=== PATIENT | male | born 1940 | race Caucasian/White ===

== ENCOUNTER 2018-06-09 14:51 | Inpatient (IN) | payer MEDICARE, OTHER ==
[~2018-06-09] VITALS: Ht 185.4 cm; Wt 131.0 kg
[2018-06-09] MEDS ORDERED: PANTOPRAZOLE 40 MG INJ IV STA (15:09)
[2018-06-09] MEDS ORDERED: RSV10T PO (15:55)
[2018-06-09] MEDS ORDERED: FURO40TA4 PO (15:57)
[2018-06-09] MEDS ORDERED: DILT180C94 PO (15:57)
[2018-06-09] MEDS ORDERED: METO-335 PO (15:58)
[2018-06-09] MEDS ORDERED: CAR8 PO (15:59)
[2018-06-09] MEDS ORDERED: ACETAMINOPHEN 325 MG TAB PO PRN ×2 (16:00→19:00)
[2018-06-09] MEDS ORDERED: ONDANSETRON 4 MG INJ IV PRN ×2 (16:00→19:00)
[2018-06-09] MEDS ORDERED: HYDR-3672 PO (16:01)
[2018-06-09] MEDS ORDERED: HYDR100T25 PO (16:01)
[2018-06-09] MEDS ORDERED: BENA40TA56 PO (16:03)
[2018-06-09] MEDS ORDERED: POTA20TA96 PO (16:03)
[2018-06-09] MEDS ORDERED: WARF5TAB PO (16:09)
[2018-06-09] MEDS ORDERED: WARF6TAB48 PO (16:09)
--- NOTE | 2018-06-09 18:03 | ERD ---
ER Documentation Chief Complaint Chief Complaint RECTAL BLEEDING TODAY SENT BY PMD , NO DIZZINESS. NO SOB OR CP. HPI Patient is a 78-year-old male with hypertension, diabetes, and A. fib who presents with "colonic bleed". The patient has had rectal bleeding 3 times in the past 5 years. He was initially on Pradaxa but is currently on Coumadin. He said the lump blood from the right colon last time. He did take vitamin K 10 mg by mouth today when he started bleeding. He said that it was "lots of blood it was dark red". He said that his last INR was 2.2. He was sent by Dr. Carey his primary doctor. He says that his last colonoscopy was a few years ago by Dr. Gerard and he was found to have diverticulosis. Upon review of old medical records this is the patient's first visit to the emergency department. ROS All systems reviewed and are negative except as per history of present illness. Medications Home Meds Reported Medications Warfarin Sodium* (Coumadin*) 5 Mg Tablet, 5 MG PO Q TUE,TH,SAT,SAT, TAB NEEDED 06/09/18 Warfarin Sodium* (Warfarin Sodium*) 6 Mg Tablet, 6 MG PO Q MON,WED,FRI, TAB NEEDED 06/09/18 Benazepril Hcl* (Benazepril Hcl*) 40 Mg Tablet, 40 MG PO DAILY, #30 TAB 06/09/18 Potassium Chloride* (Potassium Chloride*) 20 Meq Tablet.er, 20 MEQ PO BID, TAB.SA 06/09/18 Hydralazine Hcl* (Hydralazine Hcl*) 50 Mg Tab, 50 MG PO TID, #120 TAB 06/09/18 Doxazosin Mesylate* (Cardura*) 8 Mg Tablet, 8 MG PO QHS for 30 Days, TAB 06/09/18 Metoprolol Succinate* (Toprol XL*) 25 Mg Tab.sr.24h, 25 MG PO DAILY, #30 TAB 06/09/18 Diltiazem Hcl* (Diltiazem XT) 180 Mg Capsule.er, 180 MG PO DAILY, #30 CAP 06/09/18 Furosemide* (Furosemide*) 40 Mg Tablet, 40 MG PO BID, TAB 06/09/18 Rosuvastatin Calcium* (Crestor*) 10 Mg Tablet, 10 MG PO QHS, #30 TAB 06/09/18 Discontinued Reported Medications Hydralazine Hcl* (Hydralazine Hcl*) 100 Mg Tablet, 100 MG PO NEEDED, #90 TAB 06/09/18 Allergies Allergies: Coded Allergies: No Known Allergy (Unverified , 06/09/18) PMhx/Soc Positive for diabetes and hypertension with atrial fibrillation FmHx Family History: diabetes Physical Exam Vitals Vital Signs Date Temp Pulse Resp B/P (MAP) Pulse Ox O2 O2 Flow FiO2 Time Delivery Rate 06/09/18 98.0 79 20 189/101 98 14:58 (130) Physical Exam Const: No acute distress Head: Atraumatic Eyes: Normal Conjunctiva ENT: Normal External Ears, Nose and Mouth. Neck: Full range of motion. No meningismus. Resp: Clear to auscultation bilaterally Cardio: Regular rate with irregular rhythm Abd: Soft, non tender, non distended. Normal bowel sounds Skin: No petechiae or rashes Back: No midline or flank tenderness Ext: No cyanosis, or edema Neur: Awake and alert Psych: Normal Mood and Affect Result Diagram: 06/09/18 1548 06/09/18 1548 Results 24 hrs Laboratory Tests Test 06/09/18 15:48 White Blood Count 5.3 10^3/ul Red Blood Count 4.51 10^6/ul Hemoglobin 12.5 g/dl Hematocrit 40.4 % Mean Corpuscular Volume 89.6 fl Mean Corpuscular Hemoglobin 27.7 pg Mean Corpuscular Hemoglobin Concent 30.9 g/dl Red Cell Distribution Width 16.1 % Platelet Count 132 10^3/UL Mean Platelet Volume 10.9 fl Immature Granulocytes % 0.200 % Neutrophils % 72.3 % Lymphocytes % 17.3 % Monocytes % 9.0 % Eosinophils % 0.8 % Basophils % 0.4 % Nucleated Red Blood Cells % 0.0 /100WBC Immature Granulocytes # 0.010 10^3/ul Neutrophils # 3.8 10^3/ul Lymphocytes # 0.9 10^3/ul Monocytes # 0.5 10^3/ul Eosinophils # 0.0 10^3/ul Basophils # 0.0 10^3/ul Nucleated Red Blood Cells # 0.0 10^3/ul Prothrombin Time 26.2 Sec Prothrombin Time Ratio 2.0 INR International Normalized Ratio 2.40 Activated Partial Thromboplast Time 40.0 Sec Sodium Level 139 mmol/L Potassium Level 4.1 mmol/L Chloride Level 100 mmol/L Carbon Dioxide Level 30 mmol/L Anion Gap 9 Blood Urea Nitrogen 25 mg/dl Creatinine 1.12 mg/dl Est Glomerular Filtrat Rate mL/min mL/min Glucose Level 117 mg/dl Calcium Level 9.4 mg/dl Total Bilirubin 0.3 mg/dl Direct Bilirubin 0.00 mg/dl Indirect Bilirubin 0.3 mg/dl Aspartate Amino Transf (AST/SGOT) 24 IU/L Alanine Aminotransferase (ALT/SGPT) 18 IU/L Alkaline Phosphatase 84 IU/L Troponin I < 0.012 ng/ml Total Protein 7.2 g/dl Albumin 3.8 g/dl Globulin 3.40 g/dl Albumin/Globulin Ratio 1.11 Current Medications Medications Dose Sig/Preston Start Time Status Last (Trade) Ordered Route PRN Stop Time Admin Dose Reason Admin 40 mg ONCE STAT 06/09/18 DC 06/09/18 Pantoprazole IV 15:09 16:33 (Protonix 06/09/18 15:10 Iv) Ondansetron 4 mg BRIDGE ORDER 06/09/18 HCl (Zofran PRN IV 16:00 Inj) NAUSEA/VOMITI 06/10/18 15:59 NG 650 mg ER BRIDGE 06/09/18 Acetaminophen PRN PO 16:00 (Tylenol .MILD PAIN 06/10/18 15:59 Tab) 1-3 OR TEMP Procedures/MDM EKG read by me: Rate/Rhythm: Atrial fibrillation with a controlled rate Intervals: Normal Impression: Atrial fibrillation without ischemia Patient is a 78-year-old male who presents with acute GI bleed. The patient is a high risk of continued bleeding given the fact that he is on Coumadin and I am very concerned about serious life-threatening GI bleed. I believe that inpatient admission is appropriate. I spoke with Dr. Carey he will admit the patient. Dr. Gerard from GI has come and seen the patient at the bedside as well and requested a nuclear medicine bleeding scan. The patient Jairo took 10 mg of vitamin K by mouth today. Critical Care: Time: 35 minutes excluding all billable procedures. Treatments/Evaluations: Close monitoring and treatment of unstable vital signs, cardiorespiratory, and neurologic status, while maintaining tight balance of fluid, respiratory, and cardiac interventions. Departure Diagnosis: Primary Impression: Rectal hemorrhage Additional Impression: Coagulopathy Condition: Fair ADITI NAVARROIAN MD Jun 09, 2018 18:03
[2018-06-09] MEDS ORDERED: ZOLPIDEM 5 MG TAB PO PRN (19:00)
[2018-06-09] MEDS ORDERED: NACL 0.9% 3 ML SYG IV SCH (19:00)
[2018-06-09] MEDS ORDERED: SOD CHLORIDE 0.9% 0 ML IV ONE (19:21)
[2018-06-09 20:06] VITALS: Ht 185.4 cm; Wt 131.0 kg
--- NOTE | 2018-06-09 20:19 | CONS ---
DATE OF ADMISSION: 06/09/2018 DATE OF CONSULTATION: 06/09/2018 TYPE OF CONSULTATION: Gastroenterology. Thank you for having me see this patient. HISTORY OF PRESENT ILLNESS: As you know, he is a 78-year-old gentleman who comes to the emergency ro om today because of rectal bleeding. This is the 4th episode of rectal bleeding for this patient. Erasmo franco has previously been admitted at [facility] in [place] for this problem. Nonetheless becau se of underlying atrial fibrillation, he has been on Coumadin. He had been doing well since his last bleeding episode in 03/2016. Nonetheless today, he passed a normal bowel movement in the morning. At 1:00 p.m., he began passing bright red blood per rectum without any pain. He had been on Coumadin which he stopped and under the direction of Dr. Gong, he took 2 vitamin D tablets. Since bein g in the emergency room, he has passed an additional bloody stool. I was contacted by the emergency room physician to see him and ordered a stat nuclear medicine bleeding study. Of note, his last colo noscopy in 2016 was remarkable for pancolonic diverticulosis. At his last bleeding episode in [facility], the nuclear scan suggested a right colonic bleed. PAST MEDICAL HISTORY, HOSPITALIZATIONS AND OPERATIONS: Related to abdominal aortic aneurysm, percuta neous repair. ADULT ILLNESSES: Significant for atrial fibrillation, diabetes, diverticulosis, hyperlipidemia, skin cancer, sleep apnea. CHILDHOOD: Denies rheumatic fever or Scarlet fever. ALLERGIES: NONE KNOWN. INJURIES: NONE. MEDICATIONS: Include: 1. Benazepril. 2. Cardura. 3. Crestor. 4. Diltiazem. 5. Furosemide. 6. Potassium. 7. Toprol. 8. Hydralazine. 9. Warfarin. SOCIAL HISTORY: The patient is a retired electrical supervisor. He does not smoke currently, but did in the past. Alcohol intake is described as socially 3 times a week. The patient is . FAMILY HISTORY: Noncontributory except for mother who of stroke. REVIEW OF SYSTEMS: Negative except as noted above. PHYSICAL EXAMINATION: GENERAL: The patient is a well-developed elderly white male in no acute distress. VITAL SIGNS: Temperature 98, pulse 79, respirations 20, blood pressure 189/101. SKIN: Clear. HEENT: Negative. LUNGS: Clear to percussion and auscultation. CARDIAC: No murmurs or gallops. ABDOMEN: Soft, nontender. Liver is 8 cm. Spleen is not palpable. No masses. RECTAL: Deferred, although stool in the toilet bowl is red. LABORATORY DATA: At 15:48, show a white count 5.3, hemoglobin 12, hematocrit 40, platelets 132. Coa gulation: PT/INR 2.4, PTT 40. Chemistries are remarkable for BUN of 25. IMPRESSION: Clearly, the patient has lower gastrointestinal bleeding episode. It is most likely altagracia t this is once again a diverticular bleeding episode. In order to locate the exact diverticulum from which he was bleeding from, the patient will be obtaining a stat nuclear medicine bleeding study. H opefully, this will localize the area of the colon where the bleeding diverticula lies. Nonetheless, I agree with reversal of anticoagulation. In addition, the idea of a Watchman procedure so that the patient does not need anticoagulation in the future is warranted. Pending his clinical course, we m ay need to consider colonoscopy to attempt endoscopic hemostasis. Alternatively pending his clinical course, we may need to consider surgical consultation. PLAN: 1. Await nuclear medicine bleeding study. 2. Hematocrit to be checked every 6 hours. 3. Clear liquid diet. 4. Further recommendations to follow above and clinical course. Thank you once again for having me see this patient. Dictated By: IMMANUEL HEREDIA/FRANKIE Conf#: [id number] DID#: [id number] CC: DONNY GONG MD;*End*
--- NOTE | 2018-06-09 20:29 | PREOPHP ---
DATE OF ADMISSION: 06/09/2018 REASON FOR ADMISSION: Gastrointestinal bleeding. HISTORY OF PRESENT ILLNESS: This 78-year-old man was in his usual state until after lunch today when he had a bloody bowel movement. He had a normal bowel movement earlier this morning. The patient d oes have a history of GI bleeding in the past. He has had at least 3 episodes and have all thought t o be diverticular in origin. He is on Coumadin for chronic atrial fibrillation and stroke prevention . His last INR was around 2.5. He had one done today in the emergency room and it was 2.4. The pat ient at this time is awake and alert. He just finished a GI bleeding study. He denies any chest jerardo n, shortness of breath, abdominal pain, nausea, vomiting. CURRENT MEDICATIONS: Include the followin. Coumadin 5 mg alternating with 6 mg daily. 2. Benazepril 40 mg a day. 3. Diltiazem 180 mg a day. 4. Doxazosin 8 mg at bedtime. 5. Hydralazine 50 mg 3 times a day. 6. Metoprolol XL 25 mg a day. 7. Simvastatin 10 mg a day. 8. Furosemide 40 mg twice a day. 9. Potassium chloride 20 mEq twice a day. PAST MEDICAL HISTORY: Remarkable for hypertension, hyperlipidemia, allergic rhinitis, diverticulosis , hemorrhoids, anal fissures, type 2 diabetes mellitus, sleep apnea, GI bleeding several episodes pre sumed diverticular, chronic atrial fibrillation, abdominal aortic aneurysm. PAST SURGICAL HISTORY: Basal cell cancer removed from right lower leg in 2007, abdominal aortic aneu rysm stent placed 2 years ago at [facility], multiple colonoscopies. FAMILY HISTORY: Father is at age 84 of pneumonia. Mother is at age 79 of CVA. SOCIAL HISTORY: The patient does not smoke. He does exercise. Drinks alcohol socially. Occupation : Retired waste management engineer. PHYSICAL EXAMINATION: GENERAL: At this time reveals a well-developed man in no apparent distress. VITAL SIGNS: Pulse is 78, respirations 16, blood pressure 164/89, O2 saturation 100% on room air. HEENT: Head is normocephalic. Eyes: Extraocular muscles are intact. Nose and mouth are normal. NECK: Supple. No neck vein distention. LUNGS: Clear to auscultation. HEART: Irregularly irregular rhythm. No murmurs, gallops or rubs. ABDOMEN: Soft, nontender, no masses or megaly. EXTREMITIES: Trace pretibial edema. Pedal pulses are palpable bilaterally. NEUROLOGIC: Grossly intact. No obvious focal neurologic deficits. IMPRESSION: 1. Gastrointestinal bleeding. This man has had at least 3 episodes of gastrointestinal bleeding, th e last one 3 years ago when he was admitted to [facility]. At that time, he had positive for g astrointestinal bleeding study which showed bleeding in the right upper quadrant thought to be in the ascending colon. He just had a nuclear medicine bleeding study done now, which shows bleeding in th e right upper quadrant just below the liver consistent with ascending colon. He is on anticoagulant, Coumadin, which has been discontinued. He did take vitamin K 10 mg as soon as he had a bloody bowel movement today. I will order 2 units of fresh frozen plasma to be given now. He was seen in [facility], [place] by Dr. Tristan Lobato, his internal review and audit compliance. 2. Chronic atrial fibrillation on Coumadin for stroke prevention. 3. Abdominal aortic aneurysm status post stent placement. 4. Hypertension. 5. Hyperlipidemia. PLAN: 1. Admit to med/surg. Monitor for further bleeding and check hemoglobin and hematocrit later tonigh t and in the morning. 2. Reverse the anticoagulant with oral vitamin K, which he already took and 2 units of fresh frozen plasma. 3. Resume some routine medications. 4. Decide about further anticoagulation or other measures such as a Watchman device to reduce the ri sk of bleeding. Dictated By: DONNY GONG MD ND/FRANKIE Conf#: [id number] DID#: [id number] CC: TRISTAN LOBATO MD;*EndCC*
[2018-06-09] MEDS ORDERED: GLUCOSE GEL 15 GRAM TUBE PO PRN ×2 (20:30)
[2018-06-09] MEDS ORDERED: DEXTROSE 50% 50 ML SYRINGE IV PRN ×2 (20:30)
[2018-06-09] MEDS ORDERED: GLUCAGON 1 MG INJ IM PRN (20:30)
[2018-06-09] MEDS ORDERED: GLUCOSE GEL 15 GRAM TUBE BUCCAL PRN (20:30)
[2018-06-09 20:57] VITALS: BP 180/90; PULSE 91; RESP 16
[2018-06-09] MEDS: INSULIN ASPART [NOVOLOG] 3 ML PEN SC SCH (21:00)
[2018-06-09] MEDS: DEXTROSE 5%-0.45% NACL 1,000 ML IV SCH (22:02)
[2018-06-09] MEDS: ATORVASTATIN 40 MG TAB PO SCH (22:04)
[2018-06-09] MEDS: DOXAZOSIN 4 MG TAB PO SCH (22:05)
[2018-06-10 03:33] VITALS: BP 137/81; PULSE 79; RESP 16
[2018-06-10] MEDS: DEXTROSE 5%-0.45% NACL 1,000 ML IV SCH (06:00)
[2018-06-10 08:00] VITALS: BP_SYST 110; BP_SYST 170; BP_DIAS 62; BP_DIAS 84; PULSE 76; RESP 18; RESP 20
[2018-06-10] MEDS: INSULIN ASPART [NOVOLOG] 3 ML PEN SC SCH ×4 (08:00→20:37)
--- NOTE | 2018-06-10 08:23 | PN ---
Date/Time of Note Date/Time of Note DATE: 06/10/18 TIME: 08:16 Assessment/Plan VTE Prophylaxis SCD applied (from Nsg): Yes Pharmacological prophylaxis: NA/contraindicated Pharm contraindication: bleeding Lines/Catheters IV Catheter Type (from Nrsg): Saline Lock Assessment/Plan Hospital Course 1. Gastrointestinal bleeding. Nuclear medicine bleeding study was positive for right upper quadrant consistent with a sending colon. This is where he bled previously. He had one small BM that was bloody this morning. His INR is almost completely reversed. He is asymptomatic with this. Dr. Gerard , his auto parts professional will follow up with the patient today. Will advance diet as tolerated. 2. Chronic atrial fibrillation. His anticoagulation has been reversed with vitamin K and FFP. 3. Hypertension, controlled 4. Hyperlipidemia 5. Type 2 diabetes mellitus, controlled Result Diagram: 06/10/18 0702 06/10/18 0341 Results 24hrs Laboratory Tests Test 06/09/18 15:48 06/09/18 19:40 06/09/18 22:12 06/10/18 00:35 White Blood Count 5.3 Red Blood Count 4.51 L Hemoglobin 12.5 L 10.8 L Hematocrit 40.4 L 33.9 L Mean Corpuscular 89.6 Volume Mean Corpuscular 27.7 L Hemoglobin Mean Corpuscular 30.9 L Hemoglobin Concent Red Cell 16.1 H Distribution Width Platelet Count 132 L Mean Platelet Volume 10.9 H Immature 0.200 Granulocytes % Neutrophils % 72.3 Lymphocytes % 17.3 Monocytes % 9.0 Eosinophils % 0.8 Basophils % 0.4 Nucleated Red Blood 0.0 Cells % Immature 0.010 Granulocytes # Neutrophils # 3.8 Lymphocytes # 0.9 Monocytes # 0.5 Eosinophils # 0.0 Basophils # 0.0 Nucleated Red Blood 0.0 Cells # Prothrombin Time 26.2 H Prothrombin Time 2.0 Ratio INR International 2.40 Normalized Ratio Activated 40.0 H Partial Thromboplast Time Sodium Level 139 Potassium Level 4.1 Chloride Level 100 Carbon Dioxide Level 30 Anion Gap 9 Blood Urea Nitrogen 25 H Creatinine 1.12 Est Glomerular Filtrat Rate mL/min Glucose Level 117 Calcium Level 9.4 Total Bilirubin 0.3 Direct Bilirubin 0.00 Indirect Bilirubin 0.3 Aspartate Amino 24 Transf (AST/SGOT) Alanine 18 Aminotransferase (AL T/SGPT) Alkaline Phosphatase 84 Troponin I < 0.012 Total Protein 7.2 Albumin 3.8 Globulin 3.40 H Albumin/Globulin 1.11 Ratio Stool Occult Blood NEGATIVE Bedside Glucose 113 Test 06/10/18 03:41 06/10/18 07:02 White Blood Count 5.4 Red Blood Count 3.57 #L Hemoglobin 10.3 L 10.4 L Hematocrit 32.0 L 32.6 L Mean Corpuscular 89.6 Volume Mean Corpuscular 28.9 L Hemoglobin Mean Corpuscular 32.2 Hemoglobin Concent Red Cell 15.8 H Distribution Width Platelet Count 107 L Mean Platelet Volume 11.0 H Immature 0.200 Granulocytes % Neutrophils % 66.9 Lymphocytes % 21.6 Monocytes % 9.8 Eosinophils % 1.1 Basophils % 0.4 Nucleated Red Blood 0.0 Cells % Immature 0.010 Granulocytes # Neutrophils # 3.6 Lymphocytes # 1.2 Monocytes # 0.5 Eosinophils # 0.1 Basophils # 0.0 Nucleated Red Blood 0.0 Cells # Prothrombin Time 19.7 #H Prothrombin Time 1.5 Ratio INR International 1.66 Normalized Ratio Activated 31.0 Partial Thromboplast Time Sodium Level 143 Potassium Level 3.5 Chloride Level 110 # Carbon Dioxide Level 28 Anion Gap 5 Blood Urea Nitrogen 21 H Creatinine 0.95 Est Glomerular Filtrat Rate mL/min Glucose Level 93 Hemoglobin A1c 6.2 H Calcium Level 8.9 Total Bilirubin 0.7 Direct Bilirubin 0.00 Indirect Bilirubin 0.7 Aspartate Amino 20 Transf (AST/SGOT) Alanine 21 Aminotransferase (AL T/SGPT) Alkaline Phosphatase 66 Total Protein 6.1 # Albumin 3.2 L Globulin 2.90 Albumin/Globulin 1.10 Ratio Subjective 24 Hr Interval Summary Constitutional: no complaints, improved Respiratory: no complaints Cardiovascular: no complaints Gastrointestinal: blood, passing stool Genitourinary: no complaints Musculoskeletal: no complaints Neurologic: no complaints Exam/Review of Systems Exam Vitals Vital Signs Date Temp Pulse Resp B/P (MAP) Pulse Ox O2 O2 Flow FiO2 Time Delivery Rate 06/10/18 97.3 79 16 137/81 95 03:33 (99) 06/09/18 Room Air 17:59 Intake and Output 06/09/18 06/09/18 06/10/18 1515:00 23:00 07:00 OutputOutput Total 500 ml BalanceBalance -500 ml Constitutional: alert, oriented, well developed Respiratory: clear to auscultation, normal air movement Cardiovascular: edema, irregular rhythm Gastrointestinal: soft, non-tender Extremities: edema Results Results 24hrs Laboratory Tests Test 06/09/18 15:48 06/09/18 19:40 06/09/18 22:12 06/10/18 00:35 White Blood Count 5.3 Red Blood Count 4.51 L Hemoglobin 12.5 L 10.8 L Hematocrit 40.4 L 33.9 L Mean Corpuscular 89.6 Volume Mean Corpuscular 27.7 L Hemoglobin Mean Corpuscular 30.9 L Hemoglobin Concent Red Cell 16.1 H Distribution Width Platelet Count 132 L Mean Platelet Volume 10.9 H Immature 0.200 Granulocytes % Neutrophils % 72.3 Lymphocytes % 17.3 Monocytes % 9.0 Eosinophils % 0.8 Basophils % 0.4 Nucleated Red Blood 0.0 Cells % Immature 0.010 Granulocytes # Neutrophils # 3.8 Lymphocytes # 0.9 Monocytes # 0.5 Eosinophils # 0.0 Basophils # 0.0 Nucleated Red Blood 0.0 Cells # Prothrombin Time 26.2 H Prothrombin Time 2.0 Ratio INR International 2.40 Normalized Ratio Activated 40.0 H Partial Thromboplast Time Sodium Level 139 Potassium Level 4.1 Chloride Level 100 Carbon Dioxide Level 30 Anion Gap 9 Blood Urea Nitrogen 25 H Creatinine 1.12 Est Glomerular Filtrat Rate mL/min Glucose Level 117 Calcium Level 9.4 Total Bilirubin 0.3 Direct Bilirubin 0.00 Indirect Bilirubin 0.3 Aspartate Amino 24 Transf (AST/SGOT) Alanine 18 Aminotransferase (AL T/SGPT) Alkaline Phosphatase 84 Troponin I < 0.012 Total Protein 7.2 Albumin 3.8 Globulin 3.40 H Albumin/Globulin 1.11 Ratio Stool Occult Blood NEGATIVE Bedside Glucose 113 Test 06/10/18 03:41 06/10/18 07:02 White Blood Count 5.4 Red Blood Count 3.57 #L Hemoglobin 10.3 L 10.4 L Hematocrit 32.0 L 32.6 L Mean Corpuscular 89.6 Volume Mean Corpuscular 28.9 L Hemoglobin Mean Corpuscular 32.2 Hemoglobin Concent Red Cell 15.8 H Distribution Width Platelet Count 107 L Mean Platelet Volume 11.0 H Immature 0.200 Granulocytes % Neutrophils % 66.9 Lymphocytes % 21.6 Monocytes % 9.8 Eosinophils % 1.1 Basophils % 0.4 Nucleated Red Blood 0.0 Cells % Immature 0.010 Granulocytes # Neutrophils # 3.6 Lymphocytes # 1.2 Monocytes # 0.5 Eosinophils # 0.1 Basophils # 0.0 Nucleated Red Blood 0.0 Cells # Prothrombin Time 19.7 #H Prothrombin Time 1.5 Ratio INR International 1.66 Normalized Ratio Activated 31.0 Partial Thromboplast Time Sodium Level 143 Potassium Level 3.5 Chloride Level 110 # Carbon Dioxide Level 28 Anion Gap 5 Blood Urea Nitrogen 21 H Creatinine 0.95 Est Glomerular Filtrat Rate mL/min Glucose Level 93 Hemoglobin A1c 6.2 H Calcium Level 8.9 Total Bilirubin 0.7 Direct Bilirubin 0.00 Indirect Bilirubin 0.7 Aspartate Amino 20 Transf (AST/SGOT) Alanine 21 Aminotransferase (AL T/SGPT) Alkaline Phosphatase 66 Total Protein 6.1 # Albumin 3.2 L Globulin 2.90 Albumin/Globulin 1.10 Ratio Medications Medication Current Medications IV Flush (NS 3 ml) 3 ml PER PROTOCOL IV ; Start 06/09/18 at 19:00 Ondansetron HCl (Zofran Inj) 4 mg Q6H PRN IV NAUSEA/VOMITING; Start 06/09/18 at 19:00 Acetaminophen (Tylenol Tab) 650 mg Q6H PRN PO .PAIN 1-3 OR TEMP; Start 06/09/18 at 19:00 Zolpidem Tartrate (Ambien) 5 mg QHS PRN PO .INSOMNIA; Start 06/09/18 at 19:00 Benazepril HCl (Lotensin) 40 mg DAILY PO ; Start 06/10/18 at 09:00 Diltiazem HCl (Cardizem Cd) 180 mg DAILY PO ; Start 06/10/18 at 09:00 Doxazosin Mesylate (Cardura) 8 mg QHS PO Last administered on 06/09/18at 22:05; Admin Dose 8 MG; Start 06/09/18 at 21:00 Hydralazine HCl (Apresoline) 50 mg TID PO Last administered on 06/09/18at 22:05; Admin Dose 50 MG; Start 06/09/18 at 21:00 Metoprolol Succinate (Toprol Xl) 25 mg DAILY PO ; Start 06/10/18 at 09:00 Atorvastatin Calcium (Lipitor) 40 mg DAILY@21 PO Last administered on 06/09/18at 22:04; Admin Dose 40 MG; Start 06/09/18 at 21:00 Dextrose/Sodium Chloride 1,000 ml @ 100 mls/hr Q10H IV Last administered on 06/09/18at 22:02; Admin Dose 100 MLS/HR; Start 06/09/18 at 20:00 Insulin Aspart (Novolog Insulin Pen) NOVOLOG *MILD* ALGORITHM WITH MEALS BEDTIME SC ; Start 06/09/18 at 21:00 Miscellaneous Information 1 ea NOTE XX ; Start 06/09/18 at 20:30 Glucose (Glutose) 15 gm Q15M PRN PO DECREASED GLUCOSE; Start 06/09/18 at 20:30 Glucose (Glutose) 22.5 gm Q15M PRN PO DECREASED GLUCOSE; Start 06/09/18 at 20:30 Dextrose (D50w Syringe) 25 ml Q15M PRN IV DECREASED GLUCOSE; Start 06/09/18 at 20:30 Dextrose (D50w Syringe) 50 ml Q15M PRN IV DECREASED GLUCOSE; Start 06/09/18 at 20:30 Glucagon (Glucagen) 1 mg Q15M PRN IM DECREASED GLUCOSE; Start 06/09/18 at 20:30 Glucose (Glutose) 15 gm Q15M PRN BUCCAL DECREASED GLUCOSE; Start 06/09/18 at 20:30 DONNY GONG MD Jun 10, 2018 08:23
[2018-06-10] MEDS: DILTIAZEM (CD) 180 MG CAP PO SCH (09:41)
[2018-06-10] MEDS: BENAZEPRIL 40 MG TAB PO SCH (09:42)
[2018-06-10] MEDS: METOPROLOL (XL) 25 MG TAB PO SCH (09:43)
--- NOTE | 2018-06-10 11:04 | CONS ---
Assessment/Plan Assessment/Plan Hospital Course (Demo Recall) 78 yowm w/ afib, DM, hld, AAA (s/p EVAR), htn, and diverticulosis who presents with a GI bleed. HCT is stable now. Pt is hemodynamically stable. He is in afib, but HR is in the 60-70s. Defer w/u of GI bleed to medicine and GI. With regards to afib, pt warrants anticoagulation (CHADS-VASC score of 5), but he has had multiple GI bleeds on coumadin. Had a long discussion with patient regarding the Watchman procedure. He said he will reconsider it. This can be pursued as an outpt. Continue diltiazem and metoprolol. Continue statin, cailin-I and other bp meds. Consultation Date/Type/Reason Admit Date/Time Jun 09, 2018 at 15:43 Date of Consultation: Jun 10, 2018 Type of Consult Cardiology Reason for Consultation gi bleed, afib Date/Time of Note DATE: 06/10/18 TIME: 11:04 Hx of Present Illness 78 yowm w/ afib, DM, hld, AAA (s/p EVAR), htn, and diverticulosis who presents with a GI bleed. Pt noticed BRBPR after eating lunch yesterday. His INR was 2.4. His coumadin has been held. Pt reports having some BMs overnight w/ some hematochezia, but his last few hcts have been stable. He is in afib, but his HR has been under control (60-70s). Pt denies cp, sob or abdominal pain. GI ordered a nuclear scan to determine the source of the bleeding. Pt has a hx of afib and is followed by Dr. Beck. This is his third GI b leed. The first occurred while he was on pradaxa. The second was on coumadin and a few years ago. Pt was offered the Watchman device (by Dr. Enciso) a few years ago, but he declined. He denies hx of prior stroke, CAD/CT or CHF. He is on diltiazem for rate control. Constitutional: no complaints Eyes: no complaints ENT: no complaints Respiratory: no complaints Cardiovascular: no complaints Gastrointestinal: no complaints Genitourinary: no complaints Musculoskeletal: no complaints Skin: no complaints Neurologic: no complaints Endocrine: no complaints Lymphatic: no complaints Psychological: no complaints Immunologic: no complaints Past Medical History afib GI bleed (multiple) AAA (s/p EVAR at [facility], had endoleak that was treated) hld DM JAKE htn Home Meds Reported Medications Warfarin Sodium* (Coumadin*) 5 Mg Tablet, 5 MG PO Q TUE,THURS,SAT,SUN, TAB NEEDED 06/09/18 Warfarin Sodium* (Warfarin Sodium*) 6 Mg Tablet, 6 MG PO Q MON,WED,FRI, TAB NEEDED 06/09/18 Benazepril Hcl* (Benazepril Hcl*) 40 Mg Tablet, 40 MG PO DAILY, #30 TAB 06/09/18 Potassium Chloride* (Potassium Chloride*) 20 Meq Tablet.er, 20 MEQ PO BID, TAB.SA 06/09/18 Hydralazine Hcl* (Hydralazine Hcl*) 50 Mg Tab, 50 MG PO TID, #120 TAB 06/09/18 Doxazosin Mesylate* (Cardura*) 8 Mg Tablet, 8 MG PO QHS for 30 Days, TAB 06/09/18 Metoprolol Succinate* (Toprol XL*) 25 Mg Tab.sr.24h, 25 MG PO DAILY, #30 TAB 06/09/18 Diltiazem Hcl* (Diltiazem XT) 180 Mg Capsule.er, 180 MG PO DAILY, #30 CAP 06/09/18 Furosemide* (Furosemide*) 40 Mg Tablet, 40 MG PO BID, TAB 06/09/18 Rosuvastatin Calcium* (Crestor*) 10 Mg Tablet, 10 MG PO QHS, #30 TAB 06/09/18 Discontinued Reported Medications Hydralazine Hcl* (Hydralazine Hcl*) 100 Mg Tablet, 100 MG PO NEEDED, #90 TAB 06/09/18 Medications Current Medications IV Flush (NS 3 ml) 3 ml PER PROTOCOL IV ; Start 06/09/18 at 19:00 Ondansetron HCl (Zofran Inj) 4 mg Q6H PRN IV NAUSEA/VOMITING; Start 06/09/18 at 19:00 Acetaminophen (Tylenol Tab) 650 mg Q6H PRN PO .PAIN 1-3 OR TEMP; Start 06/09/18 at 19:00 Zolpidem Tartrate (Ambien) 5 mg QHS PRN PO .INSOMNIA; Start 06/09/18 at 19:00 Benazepril HCl (Lotensin) 40 mg DAILY PO Last administered on 06/10/18at 09:42; Admin Dose 40 MG; Start 06/10/18 at 09:00 Diltiazem HCl (Cardizem Cd) 180 mg DAILY PO Last administered on 06/10/18at 09:41; Admin Dose 180 MG; Start 06/10/18 at 09:00 Doxazosin Mesylate (Cardura) 8 mg QHS PO Last administered on 06/09/18at 22:05; Admin Dose 8 MG; Start 06/09/18 at 21:00 Hydralazine HCl (Apresoline) 50 mg TID PO Last administered on 06/10/18at 09:42; Admin Dose 50 MG; Start 06/09/18 at 21:00 Metoprolol Succinate (Toprol Xl) 25 mg DAILY PO Last administered on 06/10/18at 09:43; Admin Dose 25 MG; Start 06/10/18 at 09:00 Atorvastatin Calcium (Lipitor) 40 mg DAILY@21 PO Last administered on 06/09/18at 22:04; Admin Dose 40 MG; Start 06/09/18 at 21:00 Insulin Aspart (Novolog Insulin Pen) NOVOLOG *MILD* ALGORITHM WITH MEALS BEDTIME SC ; Start 06/09/18 at 21:00 Miscellaneous Information 1 ea NOTE XX ; Start 06/09/18 at 20:30 Glucose (Glutose) 15 gm Q15M PRN PO DECREASED GLUCOSE; Start 06/09/18 at 20:30 Glucose (Glutose) 22.5 gm Q15M PRN PO DECREASED GLUCOSE; Start 06/09/18 at 20:30 Dextrose (D50w Syringe) 25 ml Q15M PRN IV DECREASED GLUCOSE; Start 06/09/18 at 20:30 Dextrose (D50w Syringe) 50 ml Q15M PRN IV DECREASED GLUCOSE; Start 06/09/18 at 20:30 Glucagon (Glucagen) 1 mg Q15M PRN IM DECREASED GLUCOSE; Start 06/09/18 at 20:30 Glucose (Glutose) 15 gm Q15M PRN BUCCAL DECREASED GLUCOSE; Start 06/09/18 at 20:30 Allergies: Coded Allergies: No Known Allergy (Unverified , 06/09/18) Social History Smoking Status: Former smoker Exam/Review of Systems Vital Signs Vitals Vital Signs Date Temp Pulse Resp B/P (MAP) Pulse Ox O2 O2 Flow FiO2 Time Delivery Rate 06/10/18 98.7 76 18 170/84 96 08:00 (112) 06/09/18 Room Air 17:59 Intake and Output 06/09/18 06/09/18 06/10/18 1515:00 23:00 07:00 OutputOutput Total 500 ml BalanceBalance -500 ml Exam Constitutional: alert; No distress Neck: No jvd, No bruits Respiratory: clear to auscultation Cardiovascular: other (irreg irreg, no m/r/g) Gastrointestinal: other (obese, not examined) Extremities: No edema Neurological: nl mental status Labs Result Diagram: 06/10/18 0702 06/10/18 0341 Results 24hrs Laboratory Tests Test 06/09/18 15:48 06/09/18 19:40 06/09/18 22:12 06/10/18 00:35 White Blood Count 5.3 Red Blood Count 4.51 L Hemoglobin 12.5 L 10.8 L Hematocrit 40.4 L 33.9 L Mean Corpuscular 89.6 Volume Mean Corpuscular 27.7 L Hemoglobin Mean Corpuscular 30.9 L Hemoglobin Concent Red Cell 16.1 H Distribution Width Platelet Count 132 L Mean Platelet Volume 10.9 H Immature 0.200 Granulocytes % Neutrophils % 72.3 Lymphocytes % 17.3 Monocytes % 9.0 Eosinophils % 0.8 Basophils % 0.4 Nucleated Red Blood 0.0 Cells % Immature 0.010 Granulocytes # Neutrophils # 3.8 Lymphocytes # 0.9 Monocytes # 0.5 Eosinophils # 0.0 Basophils # 0.0 Nucleated Red Blood 0.0 Cells # Prothrombin Time 26.2 H Prothrombin Time 2.0 Ratio INR International 2.40 Normalized Ratio Activated 40.0 H Partial Thromboplast Time Sodium Level 139 Potassium Level 4.1 Chloride Level 100 Carbon Dioxide Level 30 Anion Gap 9 Blood Urea Nitrogen 25 H Creatinine 1.12 Est Glomerular Filtrat Rate mL/min Glucose Level 117 Calcium Level 9.4 Total Bilirubin 0.3 Direct Bilirubin 0.00 Indirect Bilirubin 0.3 Aspartate Amino 24 Transf (AST/SGOT) Alanine 18 Aminotransferase (AL T/SGPT) Alkaline Phosphatase 84 Troponin I < 0.012 Total Protein 7.2 Albumin 3.8 Globulin 3.40 H Albumin/Globulin 1.11 Ratio Stool Occult Blood NEGATIVE Bedside Glucose 113 Test 06/10/18 03:41 06/10/18 07:02 06/10/18 08:20 White Blood Count 5.4 Red Blood Count 3.57 #L Hemoglobin 10.3 L 10.4 L Hematocrit 32.0 L 32.6 L Mean Corpuscular 89.6 Volume Mean Corpuscular 28.9 L Hemoglobin Mean Corpuscular 32.2 Hemoglobin Concent Red Cell 15.8 H Distribution Width Platelet Count 107 L Mean Platelet Volume 11.0 H Immature 0.200 Granulocytes % Neutrophils % 66.9 Lymphocytes % 21.6 Monocytes % 9.8 Eosinophils % 1.1 Basophils % 0.4 Nucleated Red Blood 0.0 Cells % Immature 0.010 Granulocytes # Neutrophils # 3.6 Lymphocytes # 1.2 Monocytes # 0.5 Eosinophils # 0.1 Basophils # 0.0 Nucleated Red Blood 0.0 Cells # Prothrombin Time 19.7 #H Prothrombin Time 1.5 Ratio INR International 1.66 Normalized Ratio Activated 31.0 Partial Thromboplast Time Sodium Level 143 Potassium Level 3.5 Chloride Level 110 # Carbon Dioxide Level 28 Anion Gap 5 Blood Urea Nitrogen 21 H Creatinine 0.95 Est Glomerular Filtrat Rate mL/min Glucose Level 93 Hemoglobin A1c 6.2 H Calcium Level 8.9 Total Bilirubin 0.7 Direct Bilirubin 0.00 Indirect Bilirubin 0.7 Aspartate Amino 20 Transf (AST/SGOT) Alanine 21 Aminotransferase (AL T/SGPT) Alkaline Phosphatase 66 Total Protein 6.1 # Albumin 3.2 L Globulin 2.90 Albumin/Globulin 1.10 Ratio Bedside Glucose 103 Imaging Imaging ECG - afib @ 67, nl axis, QS in V1-V2, no ischemic ST changes Medications Medications Current Medications IV Flush (NS 3 ml) 3 ml PER PROTOCOL IV ; Start 06/09/18 at 19:00 Ondansetron HCl (Zofran Inj) 4 mg Q6H PRN IV NAUSEA/VOMITING; Start 06/09/18 at 19:00 Acetaminophen (Tylenol Tab) 650 mg Q6H PRN PO .PAIN 1-3 OR TEMP; Start 06/09/18 at 19:00 Zolpidem Tartrate (Ambien) 5 mg QHS PRN PO .INSOMNIA; Start 06/09/18 at 19:00 Benazepril HCl (Lotensin) 40 mg DAILY PO Last administered on 06/10/18 09:42; Admin Dose 40 MG; Start 06/10/18 at 09:00 Diltiazem HCl (Cardizem Cd) 180 mg DAILY PO Last administered on 06/10/18 09 :41; Admin Dose 180 MG; Start 06/10/18 at 09:00 Doxazosin Mesylate (Cardura) 8 mg QHS PO Last administered on 06/09/18at 22:05; Admin Dose 8 MG; Start 06/09/18 at 21:00 Hydralazine HCl (Apresoline) 50 mg TID PO Last administered on 06/10/18 09:42; Admin Dose 50 MG; Start 06/09/18 at 21:00 Metoprolol Succinate (Toprol Xl) 25 mg DAILY PO Last administered on 06/10/18 09:43; Admin Dose 25 MG; Start 06/10/18 at 09:00 Atorvastatin Calcium (Lipitor) 40 mg DAILY@21 PO Last administered on 06/09/18at 22:04; Admin Dose 40 MG; Start 06/09/18 at 21:00 Insulin Aspart (Novolog Insulin Pen) NOVOLOG *MILD* ALGORITHM WITH MEALS BEDTIME SC ; Start 06/09/18 at 21:00 Miscellaneous Information 1 ea NOTE XX ; Start 06/09/18 at 20:30 Glucose (Glutose) 15 gm Q15M PRN PO DECREASED GLUCOSE; Start 06/09/18 at 20:30 Glucose (Glutose) 22.5 gm Q15M PRN PO DECREASED GLUCOSE; Start 06/09/18 at 20:30 Dextrose (D50w Syringe) 25 ml Q15M PRN IV DECREASED GLUCOSE; Start 06/09/18 at 20:30 Dextrose (D50w Syringe) 50 ml Q15M PRN IV DECREASED GLUCOSE; Start 06/09/18 at 20:30 Glucagon (Glucagen) 1 mg Q15M PRN IM DECREASED GLUCOSE; Start 06/09/18 at 20:30 Glucose (Glutose) 15 gm Q15M PRN BUCCAL DECREASED GLUCOSE; Start 06/09/18 at 20:30 MARU FARMER Jun 10, 2018 11:04
[2018-06-10 13:23] VITALS: BP 133/67; PULSE 76
[2018-06-10 14:00] VITALS: BP 121/65; PULSE 87; RESP 18
--- NOTE | 2018-06-10 15:45 | CONS ---
Consult Date/Type/Reason Admit Date/Time Jun 09, 2018 at 15:43 Initial Consult Date 06/10/18 Type of Consultation: GI Date/Time of Note DATE: 06/10/18 TIME: 15:37 Subjective The patient has passed old blood but no fresh blood. Although the nuclear medicine scan was initially read as showing the hepatic flexure and possible sigmoid colon bleeding source, I have reviewed this with Dr. Spencer who questions that reading and raise the possibility of hepatic flexure or small bowel bleeding. Nonetheless the patient feels well. He has been tolerating clear liquids. The patient also tells me that previously he was found to have an adrenal lesion but it was subsequently felt to be due to a hemorrhage related to his anticoagulation. Objective Vitals Vital Signs Date Temp Pulse Resp B/P (MAP) Pulse Ox O2 O2 Flow FiO2 Time Delivery Rate 06/10/18 98.6 87 18 121/65 96 14:00 (83) 06/09/18 Room Air 17:59 Chest: clear to P and A Cardiac: no m, r, g Abdomen: soft, non tender, + bs Intake and Output 06/09/18 06/09/18 06/10/18 1515:00 23:00 07:00 OutputOutput Total 500 ml BalanceBalance -500 ml Results/Medications Result Diagram: 06/10/18 1211 06/10/18 0341 Results 24 hrs Laboratory Tests Test 06/09/18 15:48 06/09/18 19:40 06/09/18 22:12 06/10/18 00:35 White Blood Count 5.3 Red Blood Count 4.51 L Hemoglobin 12.5 L 10.8 L Hematocrit 40.4 L 33.9 L Mean Corpuscular 89.6 Volume Mean Corpuscular 27.7 L Hemoglobin Mean Corpuscular 30.9 L Hemoglobin Concent Red Cell 16.1 H Distribution Width Platelet Count 132 L Mean Platelet Volume 10.9 H Immature 0.200 Granulocytes % Neutrophils % 72.3 Lymphocytes % 17.3 Monocytes % 9.0 Eosinophils % 0.8 Basophils % 0.4 Nucleated Red Blood 0.0 Cells % Immature 0.010 Granulocytes # Neutrophils # 3.8 Lymphocytes # 0.9 Monocytes # 0.5 Eosinophils # 0.0 Basophils # 0.0 Nucleated Red Blood 0.0 Cells # Prothrombin Time 26.2 H Prothrombin Time 2.0 Ratio INR International 2.40 Normalized Ratio Activated 40.0 H Partial Thromboplast Time Sodium Level 139 Potassium Level 4.1 Chloride Level 100 Carbon Dioxide Level 30 Anion Gap 9 Blood Urea Nitrogen 25 H Creatinine 1.12 Est Glomerular Filtrat Rate mL/min Glucose Level 117 Calcium Level 9.4 Total Bilirubin 0.3 Direct Bilirubin 0.00 Indirect Bilirubin 0.3 Aspartate Amino 24 Transf (AST/SGOT) Alanine 18 Aminotransferase (AL T/SGPT) Alkaline Phosphatase 84 Troponin I < 0.012 Total Protein 7.2 Albumin 3.8 Globulin 3.40 H Albumin/Globulin 1.11 Ratio Stool Occult Blood NEGATIVE Bedside Glucose 113 Test 06/10/18 03:41 06/10/18 07:02 06/10/18 08:20 06/10/18 12:00 White Blood Count 5.4 Red Blood Count 3.57 #L Hemoglobin 10.3 L 10.4 L Hematocrit 32.0 L 32.6 L Mean Corpuscular 89.6 Volume Mean Corpuscular 28.9 L Hemoglobin Mean Corpuscular 32.2 Hemoglobin Concent Red Cell 15.8 H Distribution Width Platelet Count 107 L Mean Platelet Volume 11.0 H Immature 0.200 Granulocytes % Neutrophils % 66.9 Lymphocytes % 21.6 Monocytes % 9.8 Eosinophils % 1.1 Basophils % 0.4 Nucleated Red Blood 0.0 Cells % Immature 0.010 Granulocytes # Neutrophils # 3.6 Lymphocytes # 1.2 Monocytes # 0.5 Eosinophils # 0.1 Basophils # 0.0 Nucleated Red Blood 0.0 Cells # Prothrombin Time 19.7 #H Prothrombin Time 1.5 Ratio INR International 1.66 Normalized Ratio Activated 31.0 Partial Thromboplast Time Sodium Level 143 Potassium Level 3.5 Chloride Level 110 # Carbon Dioxide Level 28 Anion Gap 5 Blood Urea Nitrogen 21 H Creatinine 0.95 Est Glomerular Filtrat Rate mL/min Glucose Level 93 Hemoglobin A1c 6.2 H Calcium Level 8.9 Total Bilirubin 0.7 Direct Bilirubin 0.00 Indirect Bilirubin 0.7 Aspartate Amino 20 Transf (AST/SGOT) Alanine 21 Aminotransferase (AL T/SGPT) Alkaline Phosphatase 66 Total Protein 6.1 # Albumin 3.2 L Globulin 2.90 Albumin/Globulin 1.10 Ratio Bedside Glucose 103 101 Test 06/10/18 12:11 Hemoglobin 10.2 L Hematocrit 32.6 L Home Meds Reported Medications Warfarin Sodium* (Coumadin*) 5 Mg Tablet, 5 MG PO Q TUE,THURS,SAT,SUN, TAB NEEDED 06/09/18 Warfarin Sodium* (Warfarin Sodium*) 6 Mg Tablet, 6 MG PO Q MON,WED,FRI, TAB NEEDED 06/09/18 Benazepril Hcl* (Benazepril Hcl*) 40 Mg Tablet, 40 MG PO DAILY, #30 TAB 06/09/18 Potassium Chloride* (Potassium Chloride*) 20 Meq Tablet.er, 20 MEQ PO BID, TAB.SA 06/09/18 Hydralazine Hcl* (Hydralazine Hcl*) 50 Mg Tab, 50 MG PO TID, #120 TAB 06/09/18 Doxazosin Mesylate* (Cardura*) 8 Mg Tablet, 8 MG PO QHS for 30 Days, TAB 06/09/18 Metoprolol Succinate* (Toprol XL*) 25 Mg Tab.sr.24h, 25 MG PO DAILY, #30 TAB 06/09/18 Diltiazem Hcl* (Diltiazem XT) 180 Mg Capsule.er, 180 MG PO DAILY, #30 CAP 06/09/18 Furosemide* (Furosemide*) 40 Mg Tablet, 40 MG PO BID, TAB 06/09/18 Rosuvastatin Calcium* (Crestor*) 10 Mg Tablet, 10 MG PO QHS, #30 TAB 06/09/18 Discontinued Reported Medications Hydralazine Hcl* (Hydralazine Hcl*) 100 Mg Tablet, 100 MG PO NEEDED, #90 TAB 06/09/18 Medications Current Medications IV Flush (NS 3 ml) 3 ml PER PROTOCOL IV ; Start 06/09/18 at 19:00 Ondansetron HCl (Zofran Inj) 4 mg Q6H PRN IV NAUSEA/VOMITING; Start 06/09/18 at 19:00 Acetaminophen (Tylenol Tab) 650 mg Q6H PRN PO .PAIN 1-3 OR TEMP; Start 06/09/18 at 19:00 Zolpidem Tartrate (Ambien) 5 mg QHS PRN PO .INSOMNIA; Start 06/09/18 at 19:00 Benazepril HCl (Lotensin) 40 mg DAILY PO Last administered on 06/10/18at 09:42; Admin Dose 40 MG; Start 06/10/18 at 09:00 Diltiazem HCl (Cardizem Cd) 180 mg DAILY PO Last administered on 06/10/18at 09:41; Admin Dose 180 MG; Start 06/10/18 at 09:00 Doxazosin Mesylate (Cardura) 8 mg QHS PO Last administered on 06/09/18at 22:05; Admin Dose 8 MG; Start 06/09/18 at 21:00 Hydralazine HCl (Apresoline) 50 mg TID PO Last administered on 06/10/18at 13:32; Admin Dose 50 MG; Start 06/09/18 at 21:00 Metoprolol Succinate (Toprol Xl) 25 mg DAILY PO Last administered on 06/10/18at 09:43; Admin Dose 25 MG; Start 06/10/18 at 09:00 Atorvastatin Calcium (Lipitor) 40 mg DAILY@21 PO Last administered on 06/09/18at 22:04; Admin Dose 40 MG; Start 06/09/18 at 21:00 Insulin Aspart (Novolog Insulin Pen) NOVOLOG *MILD* ALGORITHM WITH MEALS BEDTIME SC ; Start 06/09/18 at 21:00 Miscellaneous Information 1 ea NOTE XX ; Start 06/09/18 at 20:30 Glucose (Glutose) 15 gm Q15M PRN PO DECREASED GLUCOSE; Start 06/09/18 at 20:30 Glucose (Glutose) 22.5 gm Q15M PRN PO DECREASED GLUCOSE; Start 06/09/18 at 20:30 Dextrose (D50w Syringe) 25 ml Q15M PRN IV DECREASED GLUCOSE; Start 06/09/18 at 20:30 Dextrose (D50w Syringe) 50 ml Q15M PRN IV DECREASED GLUCOSE; Start 06/09/18 at 20:30 Glucagon (Glucagen) 1 mg Q15M PRN IM DECREASED GLUCOSE; Start 06/09/18 at 20:30 Glucose (Glutose) 15 gm Q15M PRN BUCCAL DECREASED GLUCOSE; Start 06/09/18 at 20:30 Assessment/Plan Assessment/Plan (Daily) Impression: The patient's bleeding seems to have stopped currently. Given his previous bleeding scan at [facility] and his current examination, I suspect he most likely bled from diverticuli in the hepatic flexure. Plan: I have discussed the risks and benefits of anticoagulation with the patient and his in light of both colonic bleeding and adrenal bleed We have discussed repeat colonoscopy, however we will defer that currently since his bleeding has stopped We have discussed the options given to him by his marketing systems manager; he seems to prefer strong consideration of the watchman procedure. Advance diet to full liquids Recheck labs in a.m. and if stable consider discharge IMMANUEL LOBATO MD Jun 10, 2018 15:45
[2018-06-10 19:40] VITALS: BP 153/72; PULSE 77; RESP 17
[2018-06-10] MEDS: ATORVASTATIN 40 MG TAB PO SCH (20:37)
[2018-06-10] MEDS: DOXAZOSIN 4 MG TAB PO SCH (20:38)
[2018-06-11 02:00] VITALS: BP 119/79; PULSE 85; RESP 20
[2018-06-11 08:00] VITALS: BP_SYST 137; BP_SYST 139; BP_SYST 151; BP_DIAS 78; BP_DIAS 81; BP_DIAS 82; PULSE 83; PULSE 96; RESP 18
[2018-06-11] MEDS: INSULIN ASPART [NOVOLOG] 3 ML PEN SC SCH ×2 (08:00→12:00)
--- NOTE | 2018-06-11 08:33 | PN ---
Date/Time of Note Date/Time of Note DATE: 06/11/18 TIME: 08:25 SUBJECTIVE: Patient felt slightly dizzy this morning upon getting out of bed to go to the shower denies any palpitations chest pains or dyspnea. Has had no further bleeding and chart, medications and laboratory studies reviewed. ROS: Patient denied any fevers, chills, weight loss, nausea, vomiting, diarrhea, constipation, cough, hemoptysis, dysuria, hematuria, nocturia, any neurologic symptoms, headache, any chest pains, dyspnea, PND, orthopnea, leg edema, or palpitations. All other review of systems were normal. OBJECTIVE: Vital signs please see chart. HEENT; no JVD, no HJR, carotids 2 over 4+ without bruits. Chest: Clear to auscultation and percussion, no rales, wheezes or rhonchi. Cardiac: S1, S2 with normal physiologic splitting, 1/6 systolic ejection murmur, no rub click or diastolic murmur noted. Abdominal: Bowel sounds positive, soft nontender, no abdominal bruit noted, no hepatosplenomegaly. Extremities: No cyanosis, clubbing, or edema. Negative Homans sign or palpable cords. Pulses: 2/4 pulses diffusely no bruits noted. LABORATORY STUDIES; Hemoglobin 10.1 hematocrit 32.2 normal white count and low platelets at 110, electrolytes normal renal function normal calcium normal liver tests normal. Bleeding scan revealed bleeding at the hepatic flexure consistent with divert icular bleed. EKG atrial fibrillation [address] abnormality no acute changes. ASSESSMENT: 1. Recurrent lower GI bleed probably diverticular. 2. Chronic atrial fibrillationrate controlled. 3. Sleep apnea on CPAP. 4. Obesity. 5. Hypertension. 6. Pulmonary hypertension in the past probably due to volume overload or sleep apnea. 7. Type 2 diabetes. 8. Status post abdominal aortic aneurysm with endovascular stenting 2017 with endoleak repaired at [place]. 9. Hyperlipidemia on statin. 10. Benign prostatic hypertrophy. 11. Anemianormocytic secondary to #1. At this time the patient is clinically stable with a recurrent bleed. Multiple discussions have been made in the past with the patient regarding watchman device dating back several years. Dr. Kevin who is a specialist and structural heart disease had a long discussion with the patient again and patient will consider and will discuss with his regular gauge machine operator Dr. Beck. Patient understands that we will need a JOSEFINA before hand to evaluate left atrial appendage and afterwards optimally would need to be anticoagulated for approx imately 6 weeks. In the interim consider decreasing hydralazine with some mild dizziness but continue metoprolol, benazepril, Cardizem, and statin therapy. Restart low-dose anticoagulation when clinically stable from GI standpoint. Discussed case with Dr. Carey and Dr. Kevin. PLAN: 1. Consider weaning off of hydralazine with some mild lightheadedness and anemia. Continue metoprolol and diltiazem for rate control and statin therapy. 2. Patient will follow up with Dr. Beck in next 1-2 weeks to have further discussions regarding watchman device and where he would want it done. 3. Lower GI bleed, anemia management per gastroenterology and Dr. Carey. JOANN MONSON MD Jun 11, 2018 08:33
[2018-06-11] MEDS: METOPROLOL (XL) 25 MG TAB PO SCH (09:03)
[2018-06-11] MEDS: BENAZEPRIL 40 MG TAB PO SCH (09:03)
[2018-06-11] MEDS: DILTIAZEM (CD) 180 MG CAP PO SCH (09:04)
[2018-06-11 14:00] VITALS: BP_SYST 114; BP_SYST 121; BP_SYST 131; BP_DIAS 53; BP_DIAS 60; BP_DIAS 63; PULSE 55
[2018-06-11 15:00] VITALS: BP 138/65; PULSE 88; RESP 18
--- NOTE | 2018-06-11 15:44 | PDOCDIS ---
Discharge Instructions CONDITION [id number] Patient Condition: [id number] Good HOME CARE INSTRUCTIONS: [id number] Diet Instructions: [id number] Reduced Calorie ACTIVITY: [id number] Activity Restrictions: [id number] Slowly Increase Activity Rest between Activity Avoid heavy lifting Weight Bearing [id number] Bathing Restrictions: [id number] Shower FOLLOW UP/APPOINTMENTS Follow-up Plan Dr Minaya in 1 week . DONNY GONG MD Jun 11, 2018 15:44
--- NOTE | 2018-06-11 20:46 | DS ---
DATE OF ADMISSION: 06/09/2018 DATE OF DISCHARGE: 06/11/2018 REASON FOR ADMISSION: GI bleeding. HISTORY OF PRESENT ILLNESS AND HOSPITAL COURSE: This 78-year-old man was in his usual state of healt h until 06/09/2018 when after lunch he had a bloody bowel movement. He had a normal bowel movement e arlier that morning. He came to the emergency room immediately. He did take 2 vitamin K 5 mg tablet s as soon as he saw the bright red blood at home. He has been on Coumadin, therapeutic doses for chr onic atrial fibrillation and stroke prevention. The patient was seen in consultation by Dr. Immanuel Lobato, glue specialty supervisor, who has followed the patient for years. This was the patient's fourth epis ode of GI bleeding. He has not had an episode in 3 years. The patient did have a nuclear medicine s tudy which did show active bleeding. Initially, it was felt that the bleeding was in the hepatic fle xure of the colon; however when Dr. Lobato reviewed the nuclear medicine bleeding study with Dr. German, there was some question that the bleeding could have been from hepatic flexure or small bowel bleedi ng. The patient was on clear liquids orally. His diet was advanced. He was doing well. He did hav e a small dark bowel movement on the day of discharge. This was felt to be old blood. His hemoglobi n and hematocrit were stable and at the time of discharge, his hemoglobin was 10.1, hematocrit 32.2. He was up walking around. The nurses walked with him and he initially had some dizziness yesterday when he was walking but his dose of hydralazine was decreased and today, he did not have any dizzines s when he got up to walk. His postural blood pressures were acceptable. The patient was ambulatory and in good condition at the time of discharge. DISCHARGE MEDICATIONS: He will be sent home on the following medications: 1. Hydralazine 25 mg twice a day. 2. Benazepril 40 mg a day. 3. Diltiazem 180 mg a day. 4. Metoprolol succinate 25 mg a day. 5. Doxazosin 8 mg at bedtime. 6. Atorvastatin 40 mg a day. 7. Acetaminophen p.r.n. pain. DISCHARGE INSTRUCTIONS: The patient will see me in my office in 1 week. He will call me if he has a ny further bleeding. He will be off Coumadin and other anticoagulants for now. He was seen in consu ltation by his cardiology group. They are suggesting that he consider having a Watchman device place d instead of going back on Coumadin because of his recurrent bleeding. DISCHARGE DIAGNOSES: 1. Gastrointestinal bleeding, thought to be diverticular, although could be small bowel. 2. Chronic atrial fibrillation. 3. Diabetes mellitus type 2. 4. Hyperlipidemia. 5. Abdominal aortic aneurysm with stent placed. Dictated By: DONNY GONG MD ND/NTS Conf#: [id number] DID#: [id number] CC: IMMANUEL LOBATO MD;*EndCC*
== END 2018-06-11 17:40 | disposition home or self-care (01) | DRG 379 ==
LOC: E/R 14:51 → PP2 15:43
PROVIDERS: ADMIT Internal Medicine; ATTEND Internal Medicine
PROC: 30230K1 Transfusion of Nonautologous Frozen Plasma into Peripheral Vein, Open Approach (ICD-10-PCS; principal; 2018-06-09)
DX: K57.51 Diverticulosis of both small and large intestine without perforation or abscess with bleeding (principal); D50.0 Iron deficiency anemia secondary to blood loss (chronic); I48.2 Chronic atrial fibrillation; I27.20 Pulmonary hypertension, unspecified; I71.4 Abdominal aortic aneurysm, without rupture; E66.9 Obesity, unspecified; Z68.38 Body mass index [BMI] 38.0-38.9, adult; N40.0 Benign prostatic hyperplasia without lower urinary tract symptoms; G47.33 Obstructive sleep apnea (adult) (pediatric); I10 Essential (primary) hypertension; E78.5 Hyperlipidemia, unspecified; E11.9 Type 2 diabetes mellitus without complications; Z79.01 Long term (current) use of anticoagulants; Z85.828 Personal history of other malignant neoplasm of skin; Z87.891 Personal history of nicotine dependence
CPT/HCPCS: 36415; 36430; 78278; 80053; 82270; 82962; 83036; 84484; 85014; 85018; 85025; 85610; 85730; 86850; 86900; 86901; 86920; 93005; A9560; C9113; J1815; J2405; J7040; J7042; P9059

== ENCOUNTER 2018-08-11 21:57 | Emergency (ER) | payer MEDICARE, OTHER ==
[~2018-08-11] VITALS: Ht 185.4 cm; Wt 135.0 kg
[~2018-08-11 21:57] MED LIST: BENA40TA56 PO; CAR8 PO; DILT180C94 PO; HYDR-3672 PO; METO-335 PO; RSV10T PO
[2018-08-11 22:06] VITALS: Ht 185.4 cm; Wt 135.0 kg
[2018-08-11] MEDS ORDERED: SOD CHLORIDE 0.9% 500 ML IV STA (22:20)
[2018-08-12 02:14] VITALS: BP 174/97; PULSE 62; RESP 18
--- NOTE | 2018-09-04 02:45 | ERD ---
ER Documentation Chief Complaint Chief Complaint BLOODY STOOL-STARTED TODAY; ON BLOOD THINNERS AND S/P SX [id number] AGO HPI This is a 78-year-old male coming with the bloody stool started today. Patient has a history of diverticulitis post cyst but was started on blood thinners status post surgery 2 weeks ago. Denies fevers chills. Denies any abdominal pain. Denies any current complaints. ROS All systems reviewed and are negative except as per history of present illness. Medications Home Meds Reported Medications Benazepril Hcl* (Benazepril Hcl*) 40 Mg Tablet, 40 MG PO DAILY, #30 TAB 06/09/18 Hydralazine Hcl* (Hydralazine Hcl*) 50 Mg Tab, 50 MG PO TID, #120 TAB 06/09/18 Doxazosin Mesylate* (Cardura*) 8 Mg Tablet, 8 MG PO QHS for 30 Days, TAB 06/09/18 Metoprolol Succinate* (Toprol XL*) 25 Mg Tab.sr.24h, 25 MG PO DAILY, #30 TAB 06/09/18 Diltiazem Hcl* (Diltiazem XT) 180 Mg Capsule.er, 180 MG PO DAILY, #30 CAP 06/09/18 Rosuvastatin Calcium* (Crestor*) 10 Mg Tablet, 10 MG PO QHS, #30 TAB 06/09/18 Allergies Allergies: Coded Allergies: No Known Allergy (Unverified , 06/09/18) PMhx/Soc History of Surgery: Yes (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 Neck: Full range of motion. No meningismus. Resp: Clear to auscultation bilaterally Cardio: Regular rate and rhythm, no murmurs Abd: Soft, non tender, non distended. Normal bowel sounds Skin: No petechiae or rashes Back: No midline or flank tenderness Ext: No cyanosis, or edema Neur: Awake and alert Psych: Normal Mood and Affect Results 24 hrs Laboratory Tests Test 08/11/18 22:25 White Blood Count 6.0 10^3/ul Red Blood Count 4.06 10^6/ul Hemoglobin 11.1 g/dl Hematocrit 36.5 % Mean Corpuscular Volume 89.9 fl Mean Corpuscular Hemoglobin 27.3 pg Mean Corpuscular Hemoglobin Concent 30.4 g/dl Red Cell Distribution Width 15.3 % Platelet Count 173 10^3/UL Mean Platelet Volume 10.7 fl Immature Granulocytes % 0.300 % Neutrophils % 64.4 % Lymphocytes % 22.6 % Monocytes % 11.1 % Eosinophils % 1.3 % Basophils % 0.3 % Nucleated Red Blood Cells % 0.0 /100WBC Immature Granulocytes # 0.020 10^3/ul Neutrophils # 3.9 10^3/ul Lymphocytes # 1.4 10^3/ul Monocytes # 0.7 10^3/ul Eosinophils # 0.1 10^3/ul Basophils # 0.0 10^3/ul Nucleated Red Blood Cells # 0.0 10^3/ul Prothrombin Time 21.5 Sec Prothrombin Time Ratio 1.7 INR International Normalized Ratio 1.86 Activated Partial Thromboplast Time 40.1 Sec Urine Color YELLOW Urine Clarity CLEAR Urine pH 6.0 Urine Specific Rice 1.009 Urine Ketones NEGATIVE mg/dL Urine Nitrite NEGATIVE mg/dL Urine Bilirubin NEGATIVE mg/dL Urine Urobilinogen NEGATIVE mg/dL Urine Leukocyte Esterase NEGATIVE Gold/ul Urine Hemoglobin NEGATIVE mg/dL Urine Glucose NEGATIVE mg/dL Urine Total Protein NEGATIVE mg/dl Sodium Level 140 mmol/L Potassium Level 4.6 mmol/L Chloride Level 105 mmol/L Carbon Dioxide Level 28 mmol/L Anion Gap 7 Blood Urea Nitrogen 19 mg/dl Creatinine 1.10 mg/dl Est Glomerular Filtrat Rate mL/min mL/min Glucose Level 136 mg/dl Calcium Level 9.1 mg/dl Total Bilirubin 0.4 mg/dl Direct Bilirubin 0.00 mg/dl Indirect Bilirubin 0.4 mg/dl Aspartate Amino Transf (AST/SGOT) 20 IU/L Alanine Aminotransferase (ALT/SGPT) 24 IU/L Alkaline Phosphatase 81 IU/L Troponin I < 0.012 ng/ml Total Protein 6.9 g/dl Albumin 3.9 g/dl Globulin 3.00 g/dl Albumin/Globulin Ratio 1.30 Lipase 206 U/L Current Medications Medications Dose Sig/[place] Start Time Status Last (Trade) Ordered Route PRN Stop Time Admin Dose Reason Admin Sodium 500 ml @ Q1H STAT 08/11/18 DC Chloride 500 mls/hr IV 22:20 08/11/18 23:19 Procedures/MDM Medical decision make: 78-year-old male with reactivation of diverticulosis. This point clinically stable for outpatient management. Advise follow with PCP. Return for worsening symptoms Departure Diagnosis: Primary Impression: Occult blood in stools Condition: Stable Patient Instructions: Diverticulosis Referrals: DONNY GONG MD (PCP) TAVIA CHINO Sep 04, 2018 02:45
== END 2018-08-12 02:17 | disposition home or self-care (01) ==
LOC: E/R 21:57
DX: R19.5 Other fecal abnormalities (principal); I10 Essential (primary) hypertension
CPT/HCPCS: 71045; 74176; 80053; 81003; 83690; 84484; 85025; 85610; 85730; 93005; J7040; 36415